=== PATIENT | male | born 1985 | race Caucasian/White ===

== ENCOUNTER 2017-11-01 16:07 | Emergency (ER) | payer BC ==
[2017-11-01 16:12] VITALS: RESP 16
[2017-11-01 17:05] VITALS: TEMP 98.7
[2017-11-01] MEDS ORDERED: ACETAMINOPHEN TAB 500 MG TAB PO STA (17:14)
--- NOTE | 2017-11-01 17:20 | ED ---
General Adult HPI - General Chief complaint: Fever Stated complaint: Fever/103 Source: patient, RN notes reviewed, old records reviewed Mode of arrival: ambulatory Limitations: no limitations - History of Present Illness Initial comments: Chief complaint history of present illness a 32-year-old male reports his on- again off-again muscle aches and pains and fever for 3 days. No nausea no vomiting no diarrhea. Complains of mild scratchy sore throat and nonproductive cough - Related Data Home Medications Medication Instructions Recorded Confirmed Ibuprofen [Motrin] 600 mg PO Q8HR PRN 12/20/15 11/01/17 guaiFENesin [Mucinex] 1,200 mg PO BID PRN 12/20/15 11/01/17 Levothyroxine Sodium [Synthroid] 25 mcg PO DAILY 11/01/17 11/01/17 Pantoprazole Sodium [Protonix] 40 mg PO DAILY 11/01/17 11/01/17 Previous Rx's Medication Instructions Recorded Oseltamivir [Tamiflu] 75 mg PO Q12HR #10 cap 11/01/17 Allergies Allergy/AdvReac Type Severity Reaction Status Date / Time No Known Allergies Allergy Verified 11/01/17 17:02 Review of Systems ROS Statement: Those systems with pertinent positive or pertinent negative responses have been documented in the HPI. review of systems mild headache but no stiff neck no visual acuity changes dry cough, runny nose. Muscle aches and pains occasional cough. No nausea no vomiting no diarrhea no skin rashes. All systems are reviewed.Past medical problems GERD, hyperthyroidism, pneumonia last year. No surgical history. Family history no cancers. Patient denies ALLERGIES. Patient denies smoking. Patient denies alcohol use. ROS Other: All systems not noted in ROS Statement are negative. Past Medical History Past Medical History: GERD/Reflux, Thyroid Disorder Additional Past Medical History / Comment(s): hyperthyroid History of Any Multi-Drug Resistant Organisms: None Reported Past Surgical History: No Surgical Hx Reported Past Anesthesia/Blood Transfusion Reactions: No Reported Reaction Past Psychological History: No Psychological Hx Reported Smoking Status: Former smoker Past Alcohol Use History: None Reported Past Drug Use History: None Reported General Exam - General Exam Comments Initial Comments: General: The patient is awake and alert, patient arrived to the emergency room temperature 100 orally. He did take medication prior to coming to the hospital and his repeat oral temperature is 90.8. Chief complaint is that of muscle aches and pains fever on again off again for 3 to half to 4 days. Eye: Pupils are equal, round and reactive to light, extra-ocular movements are intact ; there is normal conjunctiva bilaterally. No signs of icterus. Ears, nose, mouth and throat: There are moist mucous membranes and no oral lesions. or runny nose. Neck: no anterior cervical lymphadenopathy, no meningeal irritation or stiff neck. Cardiovascular: There is a regular rate and rhythm. No murmur, rub or gallop is appreciated. Respiratory: Lungs are clear to auscultation, respirations are non-labored, breath sounds are equal. No wheezes, stridor, rales, or rhonchi.occasional dry cough by history Gastrointestinal: Soft, non-distended, non-tender abdomen without masses or organomegaly noted. There is no rebound or guarding present. No CVA tenderness. Back: There is no tenderness to palpation in the midline. There is no obvious deformity. Musculoskeletal: Normal ROM, no tenderness, There is no pedal edema. There is no calf tenderness or swelling. Sensation intact. Neurological: CN II-XII intact, There are no obvious motor or sensory deficits. Coordination appears grossly intact. Speech is normal.no focal or lateralizing findings. Skin: Skin is warm and dry and no rashes or lesions are noted. no rashes. Psychiatric: Cooperative, appropriate mood & affect, normal judgment. Limitations: no limitations Course Vital Signs 11/01/17 11/01/17 16:09 17:04 Temperature 100.0 F H 98.7 F Pulse Rate 98 Respiratory 16 Rate Blood Pressure 128/62 O2 Sat by Pulse 97 Oximetry Medical Decision Making - Medical Decision Making Medical decision making; patient presents to the emergency on-again off-again fever muscle aches and pains recurrent today. Today's fluid showed positive influenza A. The patient will be placed on Tamiflu 75 1 twice a day for 5 days. Off work for several days told to follow-up with his family physician. Advised increase fluids use Tylenol for pain - Lab Data Lab Results 11/01/17 Range/Units 17:15 Influenza Type A RNA Detected H (Not Detectd) Influenza Type B (PCR) Not Detected (Not Detectd) Disposition Clinical Impression: Influenza Disposition: HOME SELF-CARE Condition: Fair Instructions: Fever in Adults (ED), H1N1 Influenza (ED) Prescriptions: Oseltamivir [Tamiflu] 75 mg PO Q12HR #10 cap Referrals: None,Stated [Primary Care Provider] - 1-2 days Time of Disposition: 17:49
[2017-11-01] MEDS ORDERED: OSELTAMIVIR 75 MG CAP PO STA (17:48)
[2017-11-01 18:02] VITALS: BP 122/61; PULSE 92
== END 2017-11-01 18:06 | disposition home or self-care (01) ==
LOC: EC 16:07
DX: J11.1 Influenza due to unidentified influenza virus with other respiratory manifestations (principal); K21.9 Gastro-esophageal reflux disease without esophagitis; E05.90 Thyrotoxicosis, unspecified without thyrotoxic crisis or storm; Z87.891 Personal history of nicotine dependence; Z79.899 Other long term (current) drug therapy
CPT/HCPCS: 87502; 99284

== ENCOUNTER → 2022-03-13 | Outpatient (CLI) | payer BC ==
--- NOTE | 2022-03-13 15:28 | US ---
EXAMINATION TYPE: US venous doppler duplex LE RT DATE OF EXAM: 03/13/2022 3:05 PM COMPARISON: NONE CLINICAL HISTORY: M79.661 pain right lower leg. Pain in right leg. No hx of DVT. SIDE PERFORMED: Right TECHNIQUE: The lower extremity deep venous system is examined utilizing real time linear array sonog mia with graded compression, doppler sonography and color-flow sonography. VESSELS IMAGED: Common Femoral Vein Deep Femoral Vein Greater Saphenous Vein * Femoral Vein Popliteal Vein Small Saphenous Vein * Proximal Calf Veins (* superficial vessels) Right Leg: No evidence of DVT in veins imaged at this time. IMPRESSION: Negative
== END | disposition home or self-care (01) ==
LOC: RADUSWWP 13:52
PROVIDERS: ATTEND Family Medicine
DX: M79.661 Pain in right lower leg (principal); M79.604 Pain in right leg

== ENCOUNTER → 2022-06-28 | Outpatient (CLI) | payer BC ==
--- NOTE | 2022-06-29 09:09 | MR ---
EXAMINATION TYPE: MR knee LT wo con DATE OF EXAM: 06/28/2022 COMPARISON: Outside left knee x-ray June 09, 2022 HISTORY: Left knee pain, injured while wrestling. TECHNIQUE: Multiplanar, multisequence imaging of the left knee is performed without IV contrast. FINDINGS: MEDIAL MENISCUS: Anterior and posterior horns are intact without tear. LATERAL MENISCUS: Anterior and posterior horns are intact without tear. CRUCIATE LIGAMENTS: The anterior and posterior cruciate ligaments are intact and unremarkable. COLLATERAL LIGAMENTS: The medial collateral ligament and lateral collateral ligament complex are inta ct. Fluid signal surrounds the medial collateral ligament. EXTENSOR MECHANISM: Visualized quadriceps and patellar tendons are intact. EFFUSION: No significant suprapatellar joint effusion. POPLITEAL CYST: No popliteal/erwin cyst. TRICOMPARTMENT SPACES: Tricompartment joint space is fairly well preserved. No significant spurring s een. CARTILAGE: Tricompartment articular cartilage is maintained. BONE MARROW SIGNAL: A few tiny subchondral cysts near the ACL insertion anterior tibial plateau. OTHER: No additional significant abnormality is appreciated. IMPRESSION: MCL sprain injury. No meniscal tear.
== END | disposition home or self-care (01) ==
LOC: RADMRIMAIN 18:58
PROVIDERS: ATTEND Orthopaedic Surgery
DX: S83.412A Sprain of medial collateral ligament of left knee, initial encounter (principal); Y93.72 Activity, wrestling